=== PATIENT | female | born 1970 | race Two or more races ===

== ENCOUNTER 2022-06-28 04:23 | Inpatient (IN) | payer OTHER ==
[~2022-06-28] VITALS: Ht 165.1 cm; Wt 83.9 kg
--- NOTE | 2022-06-28 04:38 | NUR ---
[id number] FROM [facility] C/O CP SINCE 344. TRAFFIC MAINTENANCE SUPERVISOR TOOK ASP 325MG, & NITRO. PT AAOX4 BREATHING EVENLY AND UNLABORED, BUT PT REPORTS FEELING SOME SOB. SATURATING 100% RA. PT ATTACHED TO MONITOR AND POX. PT STATES FEELING BETTER AFTER ASA AND NITRO THAT WAS GIVEN BY PARAMEDICS. PT HAS DIALYSIS ACCESS ON RT UPPER CHEST. MD AT BEDSIDE. WILL CONTINUE TO MONITOR.
--- NOTE | 2022-06-28 04:41 | NUR ---
EMT AT PT'S BEDSIDE FOR EKG
--- NOTE | 2022-06-28 05:06 | NUR ---
ICT SUPPORT TECHNICIANS AT PT'S BEDSIDE
[2022-06-28 05:40] LABS: BASOPHILS % (AUTO) 0.5 % (0.0-2.0); HEMATOCRIT 36 % (33-45); HEMOGLOBIN 11.9 g/dL (11.5-14.8); LYMPHOCYTES # (AUTO) 2.7 K/uL (0.8-4.8); LYMPHOCYTES % (AUTO) 26.9 % (20.0-44.0); MEAN CORPUSCULAR HGB CONC 34 g/dl (31.0-36.0); MEAN CORPUSCULAR VOLUME 95 fL (82-100); MONOCYTES # (AUTO) 0.8 K/uL (0.1-1.30); MONOCYTES % (AUTO) 7.7 % (2.0-12.0); NEUTROPHILS # (AUTO) 6.3 K/uL (1.8-8.9); NEUTROPHILS % (AUTO) 62.9 % (43.0-81.0); PLATELET COUNT (AUTO) 207 K/uL (150-450); RED BLOOD CELL COUNT(AUTO) 3.75 MIL/uL (4.0-5.2)
[2022-06-28 05:51] LABS: CALCIUM, SERUM 8.8 mg/dL (8.5-10.1); CARBON DIOXIDE 25 mmol/L (21-32); CHLORIDE 101 mmol/L (98-107); CREATININE 3.5 mg/dL (0.6-1.3); GLUCOSE 207 mg/dL (74-106); POTASSIUM 4.1 mmol/L (3.5-5.1); SODIUM SERUM 137 mmol/L (136-145); UREA NITROGEN, BLOOD 59 mg/dL (7-18)
[2022-06-28 06:07] LABS: ALANINE AMINOTRANSFERASE 20 U/L (12-78); ALBUMIN 3.2 g/dL (3.4-5.0); ALKALINE PHOSPHATASE 159 U/L (46-116); ASPARTATE AMINOTRANSFERASE 16 U/L (15-37); BILIRUBIN,DIRECT 0.1 mg/dL (0.0-0.2); BILIRUBIN,TOTAL 0.3 mg/dL (0.2-1.0)
--- NOTE | 2022-06-28 06:47 | NUR ---
covid swab sent to lab
--- NOTE | 2022-06-28 07:26 | NUR ---
REPORT GIVEN TO ABHAY BAINS FOR LYLE
[2022-06-28] MEDS ORDERED: EZET10TA32 PO (08:27)
[2022-06-28] MEDS ORDERED: ALBU2.5V38 NEB (08:27)
[2022-06-28] MEDS ORDERED: INSU100C SQ (08:27)
[2022-06-28] MEDS ORDERED: INSU100V7 SQ (08:27)
[2022-06-28] MEDS ORDERED: ATOR80TA PO (08:27)
[2022-06-28] MEDS ORDERED: ASPI-1420 PO (08:27)
--- NOTE | 2022-06-28 08:51 | NUR ---
Joseph caballero in ED - 06/28/22 at 0852 by JASON COVID SWAB DONE AND SENT TO LAB
[2022-06-28] MEDS ORDERED: MORPHINE SULFATE INJ 2 MG/ML DISP.SYRIN IV PRN (10:00)
[2022-06-28] MEDS ORDERED: NITROGLYCERIN 0.4 MG/TAB BOTTLE SL PRN (10:00)
[2022-06-28] MEDS ORDERED: ONDANSETRON HCL/PF 4 MG/2 ML VIAL IVP PRN (10:00)
[2022-06-28] MEDS: INSULIN LISPRO/ASPART 100 UNIT/ML CARTRIDGE SQ SCH ×2 (12:00→17:14)
--- NOTE | 2022-06-28 12:52 | NUR ---
REPORT GIVEN TO [place] BLANK FOR LYLE
--- NOTE | 2022-06-28 13:10 | NUR ---
TRANSFERRED TO BED 311 IN STABLE CONDITION
[2022-06-28 13:11] VITALS: BP 165/85
--- NOTE | 2022-06-28 13:11 | NUR ---
RN NOTE- PT ARRIVED FROM ED FOR ADMISSION TO TELEMETRY. DX ANGINA/CP. BEGIN ADMISSION PROCESS.
--- NOTE | 2022-06-28 13:12 | NUR ---
PRIMING MIXTURE CARRIER NOTE- 52 Y/O FEMALE LIVES AT HOME W FAMILY. IS ON DAILY DIALYSIS AND WAS RECEIVING HD THIS MORNING WHEN SHE EXPERIENCED CHEST PAIN. SHES BEING ADMITTED TELE FOR ANGINA / CP. PMHX- CHRONIC RENAL FAILURE, HD, CAD W STENTS IN 2020, LEGALLY BLIND, DIABETES, HTN, ASTHMA, HLD. SHE IS ALLERGIC TO NITROFURANTOIN AND IODINE. SHES COVID NEG. PT HAS HAD FLU, PNA VACCINES AND MODERNA COVID VACCS. PRESENTS AOX4, INTERACTIVE, SKIN INTACT. HD PORT TO RCW, HD TO LFA AND PIV 18G TO KIMBERLY. CHEST CLEAR TO AUSCULTATION, BS POSITIVE, NO GUARDING OR RIGIDITY. USES BR. VS - BP- 165/85, HR- 79, RR- 20, T- 98.0. O2 SATS AT 98% RA. ACCUCHECK- BS-211. CXR NEG, PT SAW , ORDERS RECEIVED AND COMPLIED WITH. BED LOCKED, CALL LIGHT IN REACH, ASSIST / MONITOR
[2022-06-28 16:00] VITALS: BP 161/72
[2022-06-28] MEDS ORDERED: METOPROLOL TARTRATE 25 MG TABLET PO SCH (17:00)
--- NOTE | 2022-06-28 19:25 | NUR ---
RN CLOSING NOTE- PT SLEEPING IN BED, EASILY AWAKENED. A/OX4. PT LEGALLY BLIND. NEED ASSIST DURING MEAL TIME TO SET UP. PO INTAKE AT 100%. VS STABLE. MED COMPLIANT. DENIES CHEST PAIN. TELE SINUS RHYTHM @79. FOR CARDIAC CONSULT, ECHO, PT, LABS IN MORNING. SIDE RAILS UP X2, CALL LIGHT WITHIN REACH. WILL ENDORSE TO DIRECTOR OF ENTERTAINMENT NURSE FOR CONTINUITY OF CARE.
--- NOTE | 2022-06-28 19:30 | NUR ---
RN NOTES RECEIVED REPORT FROM MORNING SHIFT. PATIENT IN BED A/O X3 ABLE TO MAKE NEEDS KNOWN. ON ROOM AIR SATING 97% NO SOB NO DISTRESS NOTED. ON TELE MONITOR WITH SINUS @73 NO CHEST PAIN NOTED AT THIS TIME. WITH IV ACCESS AT KIMBERLY #18 SL. RCW PERMA CATH INTACT NO BLEEDING NOTED. ALL SAFETY MEASURES IN PLACE AT ALL TIMES. HOB ELEVATED. CALL LIGHT WITHIN REACH WILL CLOSELY MONITOR THE PATIENT
[2022-06-28 20:00] VITALS: BP 174/63
[2022-06-28] MEDS ORDERED: INSULIN GLARGINE, 100 UNIT/ML CARTRIDGE SQ SCH (22:00)
[2022-06-28] MEDS ORDERED: ATORVASTATIN 40 MG TABLET PO SCH (22:00)
--- NOTE | 2022-06-28 22:40 | NUR ---
RN NOTES BP 174/63 DR HOWELL INFORMED WITH NEW ORDER FOR HYDRALAZINE 10 MG IV Q6H PRN FOR SBP> 170 SYSTOLIC.
[2022-06-28] MEDS ORDERED: hydrALAZINE HCL IV 20 MG VIAL IV PRN (23:00)
[2022-06-29] VITALS: BP 153/75
[2022-06-29 05:00] VITALS: BP 132/60
[2022-06-29] MEDS: INSULIN LISPRO/ASPART 100 UNIT/ML CARTRIDGE SQ SCH ×3 (06:31→17:30)
--- NOTE | 2022-06-29 07:07 | NUR ---
RN NOTES PATIENT REMAINS STABLE NO SIGNIFICANT CHANGES IN HEALTH CONDITION. ALL DUE MEDS GIVEN ORDERED. PATIENT ON ROOM AIR SATING 97%. NO CHESP PAIN NOTED AT THIS TIME. IV ACCESS R UA PATENT FLUSHES WELL. ALL NEEDS ATTENDED. WILL ENDORSED TO MORNING SHIFT FOR LYLE
--- NOTE | 2022-06-29 07:30 | NUR ---
POLICE PATROL OFFICER OPENING NOTE- RECEIVED PATIENT AWAKE IN BED. A/OX4. PT LEGALLY BLIND. VS STABLE. MED COMPLIANT. DENIES CHEST PAIN. ON TELE MONITOR READING SINUS RHYTHM. ABLE TO MAKE NEEDS KNOWN KIMBERLY IV ACCESS G# 18 INTACT . RCW PERMA CATH INTACT. SIDE RAILS UP X2, BED IN THE LOWEST LOCKED POSITION. CALL LIGHT AND TABLE IN EASY REACH. WILL CONTINUE TO MONITOR.
[2022-06-29 08:00] VITALS: BP 109/50
[2022-06-29 08:19] LABS: BASOPHILS # (AUTO) 0.1 K/uL (0.0-0.2); BASOPHILS % (AUTO) 0.7 % (0.0-2.0); EOSINOPHILS % (AUTO) 2.4 % (0.0-6.0); HEMATOCRIT 32 % (33-45); HEMOGLOBIN 10.8 g/dL (11.5-14.8); LYMPHOCYTES # (AUTO) 2.8 K/uL (0.8-4.8); LYMPHOCYTES % (AUTO) 34.8 % (20.0-44.0); MEAN CORPUSCULAR HGB CONC 33 g/dl (31.0-36.0); MEAN CORPUSCULAR VOLUME 96 fL (82-100); MONOCYTES # (AUTO) 0.6 K/uL (0.1-1.30); NEUTROPHILS # (AUTO) 4.5 K/uL (1.8-8.9); NEUTROPHILS % (AUTO) 55.1 % (43.0-81.0); PLATELET COUNT (AUTO) 212 K/uL (150-450); RED BLOOD CELL COUNT(AUTO) 3.35 MIL/uL (4.0-5.2); WHITE BLOOD COUNT (AUTO) 8.2 K/uL (4.3-11.0)
[2022-06-29 08:30] LABS: CALCIUM, SERUM 8.4 mg/dL (8.5-10.1); CREATININE 3.8 mg/dL (0.6-1.3); POTASSIUM 4.4 mmol/L (3.5-5.1)
[2022-06-29] MEDS ORDERED: ASPIRIN EC 81 MG TABLET.DR PO SCH (09:00)
[2022-06-29] MEDS ORDERED: ALBUTEROL FS 2.5 MG/3 ML VIAL.NEB NEB SCH (09:00)
[2022-06-29] MEDS ORDERED: EZETIMIBE 10 MG TABLET PO SCH (09:00)
[2022-06-29] MEDS ORDERED: ASPIRIN 81 MG TAB.CHEW PO SCH (09:00)
[2022-06-29] MEDS: METOPROLOL TARTRATE 25 MG TABLET PO SCH ×2 (09:06→16:43)
[2022-06-29] MEDS ORDERED: CT SWABBABLE VALVE TRANS SET 1 EA INFUS.SET MC ONE (12:43)
[2022-06-29] MEDS ORDERED: IOHEXOL-350 100 ML VIAL IV ONE (12:43)
[2022-06-29] MEDS ORDERED: IV NS 0.9% 250 ML IV ONE (12:44)
[2022-06-29] MEDS ORDERED: METOPROLOL TARTRATE INJ 5 MG/5 ML AMPUL ONE (13:14)
[2022-06-29] MEDS ORDERED: NITROGLYCERIN 0.4 MG/TAB BOTTLE ONE (13:14)
--- NOTE | 2022-06-29 13:25 | NUR ---
RN NOTES PATIENT REFUSED CT ANGIO OF THE HEART WITH 3 D IMAGING AT 1325. SINCE ALLERGIC TO IODINE. DR NINA BEING INFORMED. DR NINA ORDERED BENADRYL AND SOLUMOL , BUT STILL PATIENT REFUSING AND STATING THAT HER PREVIOUS COMO DIAMOND SORTER STATED SHE CAN NOT HAVE MORE CONTRAST. PATIENT REFUSED THE TEST. RESPECT THE PATIENT'S RIGHT. DR NINA AND DR LEYVAYAN AWARE.
--- NOTE | 2022-06-29 14:15 | NUR ---
RN NOTES CALLED [facility] AT [address] GUERRERO THAT DR NINA CLEARED HER FOR DC. DR GUERRERO STATED WILL FOLLOW UP WITH THE DISCHARGE ORDER.
[2022-06-29 16:00] VITALS: BP 158/69
[2022-06-29 16:43] VITALS: BP 158/69
--- NOTE | 2022-06-29 19:30 | NUR ---
RN NOTES DISCHARGE PATIENT IN STABLE CONDITION WITH STABLE VITAL SIGN. NO PAIN NOTED. NO SOB NOTED. NO DISTRESS NOTED. ALL THE DISCHARGE INSTRUCTIONS GIVEN TO THE PATIENT. PATIENT VERBALIZED UNDERSTANDING. REMINDED HER TO FOLLOW UP WITH PCP , [facility] IN 2 WEEKS AND FOLLOW UP HER ROUTINE OUTPATIENT DIALYSIS. PATIENT VERBALIZED UNDERSTANDING. IV SITE REMOVED COVERED WITH DRY DRESSING . NO BLEEDING NOTED. ID BAND REMOVED. TELE BOX REMOVED . ALL NEEDS ATTENDED. ALL THE BELONGINGS ACCOUNTED AND SIGNED FOR. MEGAN KEANE FROM [employer] WHEELED THE PATIENT TO THE LOBBY AT 0715. PATIENT LEFT HOSPITAL IN STABLE CONDITION WITH STABLE VITAL SIGNS. MD DR GUERRERO AND CHARGE NURSE KEIKO AWARE OF THE DISCHARGE.
== END 2022-06-29 19:14 | disposition home or self-care (01) | DRG 198 ==
LOC: ER 04:27 → TELE 12:57
PROVIDERS: ADMIT Internal Medicine; ATTEND Internal Medicine
DX: I25.110 Atherosclerotic heart disease of native coronary artery with unstable angina pectoris (principal); I12.0 Hypertensive chronic kidney disease with stage 5 chronic kidney disease or end stage renal disease; E11.22 Type 2 diabetes mellitus with diabetic chronic kidney disease; N18.6 End stage renal disease; Z99.2 Dependence on renal dialysis; Z20.822 Contact with and (suspected) exposure to COVID-19; Z88.8 Allergy status to other drugs, medicaments and biological substances; Z91.041 Radiographic dye allergy status; Z95.5 Presence of coronary angioplasty implant and graft; E78.5 Hyperlipidemia, unspecified; Z79.4 Long term (current) use of insulin; Z79.82 Long term (current) use of aspirin; Z79.51 Long term (current) use of inhaled steroids; Z79.899 Other long term (current) drug therapy; M89.8X9 Other specified disorders of bone, unspecified site
CPT/HCPCS: 36415; 71045-TC; 80048-TC; 80076-TC; 82962-TC; 83880; 84484-TC; 85025-TC; 85730-TC; 86706; 87081-TC; 87340; 93307-TC; 97112-TC; 97116-TC; 97530-TC; C9803; G0378; J0360; J1815; J2270; J3490; J7050; Q9967

== ENCOUNTER 2022-12-27 07:19 | Inpatient (IN) | payer OTHER ==
[~2022-12-27] VITALS: Ht 162.6 cm; Wt 89.9 kg
[~2022-12-27 07:19] MED LIST: ALBU2.5V38 NEB; ASPI-1420 PO; ATOR80TA PO; EZET10TA32 PO; INSU100C SQ; INSU100V7 SQ
--- NOTE | 2022-12-27 07:20 | NUR ---
RECEIVED PT 52 YRS FEMALE CAME BY [facility] C/O CHEST PAIN 05/21 AFTER COMPLETED HEMODIALYSIS COMPLETED TODAY AWAKE AND ALERT FALLOW NO DISTRESS
--- NOTE | 2022-12-27 07:25 | NUR ---
SEEN BY DR. PAVON
--- NOTE | 2022-12-27 07:35 | NUR ---
INSERTED ANGO CATHETER G 20 ON RT AC BLOOD DROW AND SENT TO LAB
[2022-12-27 08:04] LABS: BASOPHILS % (AUTO) 0.4 % (0.0-2.0); EOSINOPHILS % (AUTO) 2.4 % (0.0-6.0); HEMATOCRIT 33 % (33-45); HEMOGLOBIN 11.5 g/dL (11.5-14.8); LYMPHOCYTES # (AUTO) 2.3 K/uL (0.8-4.8); LYMPHOCYTES % (AUTO) 29.4 % (20.0-44.0); MEAN CORPUSCULAR HGB CONC 34 g/dl (31.0-36.0); MEAN CORPUSCULAR VOLUME 95 fL (82-100); MONOCYTES # (AUTO) 0.6 K/uL (0.1-1.30); NEUTROPHILS # (AUTO) 4.6 K/uL (1.8-8.9); NEUTROPHILS % (AUTO) 59.8 % (43.0-81.0); PLATELET COUNT (AUTO) 151 K/uL (150-450); RED BLOOD CELL COUNT(AUTO) 3.52 MIL/uL (4.0-5.2); WHITE BLOOD COUNT (AUTO) 7.8 K/uL (4.3-11.0)
--- NOTE | 2022-12-27 08:20 | NUR ---
RESTING AT THIS TIME WITH NO SOB
[2022-12-27] MEDS ORDERED: MORPHINE SULFATE INJ 2 MG/ML DISP.SYRIN IV ONE (08:30)
[2022-12-27 08:32] LABS: CARBON DIOXIDE 27 mmol/L (21-32); CHLORIDE 99 mmol/L (98-107); CREATININE 2.4 mg/dL (0.6-1.3); GLUCOSE 238 mg/dL (74-106); POTASSIUM 3.7 mmol/L (3.5-5.1); SODIUM SERUM 132 mmol/L (136-145); UREA NITROGEN, BLOOD 30 mg/dL (7-18)
--- NOTE | 2022-12-27 08:42 | NUR ---
COVID SWAB DONE AND SENT TO THE LAB
--- NOTE | 2022-12-27 08:42 | NUR ---
COVID SWAB SENT TO LAB
[2022-12-27 08:44] LABS: ALANINE AMINOTRANSFERASE 25 U/L (12-78); ALBUMIN 3.4 g/dL (3.4-5.0); ALKALINE PHOSPHATASE 188 U/L (46-116); ASPARTATE AMINOTRANSFERASE 16 U/L (15-37); BILIRUBIN,DIRECT 0.1 mg/dL (0.0-0.2); BILIRUBIN,TOTAL 0.4 mg/dL (0.2-1.0); TOTAL PROTEIN, SERUM 6.9 g/dL (6.4-8.2)
[2022-12-27] MEDS ORDERED: MORPHINE SULFATE INJ 2 MG/ML DISP.SYRIN ONE (08:44)
[2022-12-27] MEDS: ASPIRIN 325 MG TABLET PO ONE ×2 (08:45→08:58)
[2022-12-27] MEDS ORDERED: ASPIRIN EC 325 MG TABLET.DR PO ONE (08:45)
--- NOTE | 2022-12-27 08:59 | NUR ---
Joseph caballero in ED - 12/27/22 at 0900 by GORAN INSERTED ARNULFO G 20 ON RT AC BLOOD DROW AND SENT TO LAB
--- NOTE | 2022-12-27 10:19 | NUR ---
BLOOD DROW FOR TROBONINE LEVEL
--- NOTE | 2022-12-27 11:28 | NUR ---
UA SENT TO LAB
--- NOTE | 2022-12-27 12:45 | NUR ---
PAUL AGUSTIN [phone] Addendum: 12/27/22 at 1246 by JOHANNO OPTION 3
--- NOTE | 2022-12-27 13:15 | NUR ---
CALLED NURSING SUP REGARDING PT BED
[2022-12-27] MEDS ORDERED: MORPHINE SULFATE INJ 2 MG/ML DISP.SYRIN IV PRN (14:00)
[2022-12-27] MEDS ORDERED: HYDROCODONE/APAP 5/325MG TABLET PO PRN (14:00)
[2022-12-27] MEDS ORDERED: Z GUARD REMEDY 4 OZ OINT TP PRN (14:00)
[2022-12-27] MEDS ORDERED: ONDANSETRON HCL/PF 4 MG/2 ML VIAL IVP PRN (14:00)
[2022-12-27] MEDS ORDERED: NITROGLYCERIN 0.4 MG/TAB BOTTLE SL PRN (14:00)
[2022-12-27] MEDS ORDERED: ACETAMINOPHEN 325 MG TABLET PO PRN (14:00)
[2022-12-27] MEDS ORDERED: LATA2.5D2 LEFTEYE (14:14)
[2022-12-27] MEDS ORDERED: SEVE800T28 PO (14:14)
[2022-12-27] MEDS ORDERED: DEXTROSE 50%-WATER 50 ML DISP.SYRIN IV PRN (14:30)
--- NOTE | 2022-12-27 14:54 | NUR ---
RESTING AND ASLEEPY NO CHEST PAIN
--- NOTE | 2022-12-27 15:06 | NUR ---
ROOM 323-2
[2022-12-27] MEDS ORDERED: CLOP75TA15 PO (15:18)
[2022-12-27] MEDS ORDERED: PANT40TA49 PO (15:18)
[2022-12-27] MEDS ORDERED: EPOE1VIA7 SQ (15:18)
[2022-12-27] MEDS ORDERED: AMLO-213 PO (15:18)
[2022-12-27] MEDS ORDERED: CHOL100043 PO (15:18)
[2022-12-27] MEDS ORDERED: ALBU8.5H8 IH (15:18)
[2022-12-27] MEDS ORDERED: CARV3.122 PO (15:18)
[2022-12-27] MEDS ORDERED: CALC0.5C11 PO (15:18)
[2022-12-27] MEDS ORDERED: DOCU-141 PO (15:18)
--- NOTE | 2022-12-27 15:20 | NUR ---
REPORT GIVEN TO NURSE HEART FOR LYLE
--- NOTE | 2022-12-27 15:27 | NUR ---
TO ROOM 323-2 VIA GARNY STABLE VS DINMARK CHEST PAIN
--- NOTE | 2022-12-27 16:35 | NUR ---
Joseph caballero in [facility] - 12/27/22 at 1647 by GORAN TO ROOM 323-1
--- NOTE | 2022-12-27 16:35 | NUR ---
TO ROOM 323-2 VIA SWETHA FREEMAN VS
--- NOTE | 2022-12-27 16:35 | NUR ---
WATING FOR ROLE OVER
[2022-12-27] MEDS: BLOOD SUGAR DIAGNOSTIC 1 EACH STRIP IN SCH ×2 (18:09→22:08)
[2022-12-27] MEDS: INSULIN REGULAR, HUMAN 100 UNIT/ML 3 ML VIAL SQ PRN ×2 (18:38→22:11)
--- NOTE | 2022-12-27 18:45 | NUR ---
MS NURSE AUDITOR NOTES: Pt admitted to unit via rney at 1638 accompanied by 2 ER staff with the diagnosis of chest pain. A/O x 4, able to make needs known, ambulatory with cane. Verbalized still has left lower sided chest pain with scale of 4/10. IV access in the RAC #20g, sl. Oriented to room and staff. Admission care done. No skin issues. Hooked to tele monitor with current SR. On room air, tolerating well. Safety measures implemented: bed locked in lowest position, hob elevated, side rails up x 3, call light and tray table within easy reach. Will continue to monitor.
--- NOTE | 2022-12-27 19:00 | NUR ---
BRANCH ACCOUNT MANAGER CLOSING NOTES: Pt resting in bed. A/O x 4, able to make needs known. IV access in the RAC #20g, sl. On tele monitor with current SR. On room air, tolerating well. Needs attended. Safety measures implemented: bed locked in lowest position, hob elevated, side rails up x 3, call light and tray table within easy reach. Will endorse herb to film processing shift supervisor.
--- NOTE | 2022-12-27 19:30 | NUR ---
BEARING MACHINE OPERATOR OPENING NOTE RECEIVED PT AWAKE IN BED. A/O X4 AND ABLE TO MAKE NEEDS KNOWN. PT STABLE ON ROOM AIR. NO SOB OR S/S OF RESPIRATORY DISTRESS. BREATHING EVEN AND UNLABORED. ON EXTERNAL DIVISION ENGINEER READING SR 70 BPM. IV ACCESS RAC 20G SL, INTACT AND PATENT. SAFETY PRECAUTIONS IN PLACE. BED IN LOWEST LOCKED POSITION, HOB ELEVATED, SIDE RAILS UP X2, AND CALL LIGHT AND TABLE WITHIN REACH. ALL NEEDS MET AT THIS TIME.
[2022-12-27 20:00] VITALS: BP 172/80
[2022-12-27] MEDS ORDERED: hydrALAZINE HCL IV 20 MG VIAL IV PRN (20:30)
--- NOTE | 2022-12-27 20:35 | NUR ---
RN NOTE PT NOTED WITH BP 172/80 AND HR 74[address] INFORMED DR COOPER WITH NEW ORDER FOR HYDRALAZINE 10 MG Q4H PRN FOR SBP >160. NEW ORDER NOTED AND CARRIED OUT. SPOKE TO PT AND SHE REFUSED MED. SHE STATED "I DO NOT WANT TO TAKE MEDICATION FOR MY BLOOD PRESSURE IN CASE I AM ABLE TO GET DIALYSIS TOMORROW". INFORMED PT THAT THE SENIOR INFORMATION DEVELOPER HAS NOT SEEN HER YET AND THERE IS NO HD ORDER. PT STATED SHE UNDERSTOOD AND STILL REFUSED THE MEDICATION. CHARGE NURSE DENIS VILLARREAL.
[2022-12-27] MEDS: ATORVASTATIN 40 MG TABLET PO SCH (22:16)
[2022-12-27] MEDS: INSULIN GLARGINE, 100 UNIT/ML CARTRIDGE SQ SCH (22:16)
[2022-12-28 04:00] VITALS: BP 106/74
[2022-12-28] MEDS: BLOOD SUGAR DIAGNOSTIC 1 EACH STRIP IN SCH ×4 (06:30→22:12)
[2022-12-28] MEDS: INSULIN REGULAR, HUMAN 100 UNIT/ML 3 ML VIAL SQ PRN ×3 (06:31→22:16)
--- NOTE | 2022-12-28 06:32 | NUR ---
REGIONAL DRIVER CLOSING NOTE PT AWAKE IN BED. A/O X4 AND ABLE TO MAKE NEEDS KNOWN. PT STABLE ON ROOM AIR. NO SOB OR S/S OF RESPIRATORY DISTRESS. BREATHING EVEN AND UNLABORED. ON EXTERNAL SOLAR SALES ASSOCIATE READING SR 69 BPM. IV ACCESS RAC 20G SL, INTACT AND PATENT. ALL DUE MEDS GIVEN ORDERED. NO COMPLAINTS OF PAIN OR DISCOMFORT ENTIRE SHIFT. SAFETY PRECAUTIONS IN PLACE AT ALL TIMES. BED IN LOWEST LOCKED POSITION, HOB ELEVATED, SIDE RAILS UP X2, AND CALL LIGHT AND TABLE WITHIN REACH. ALL NEEDS MET AT THIS TIME AND WILL ENDORSE TO ONCOMING NURSE FOR LYLE.
[2022-12-28 06:48] LABS: BASOPHILS % (AUTO) 0.4 % (0.0-2.0); EOSINOPHILS % (AUTO) 2.3 % (0.0-6.0); HEMATOCRIT 33 % (33-45); HEMOGLOBIN 10.8 g/dL (11.5-14.8); LYMPHOCYTES # (AUTO) 2.6 K/uL (0.8-4.8); LYMPHOCYTES % (AUTO) 34.6 % (20.0-44.0); MEAN CORPUSCULAR HGB CONC 33 g/dl (31.0-36.0); MEAN CORPUSCULAR VOLUME 97 fL (82-100); MONOCYTES # (AUTO) 0.7 K/uL (0.1-1.30); MONOCYTES % (AUTO) 8.8 % (2.0-12.0); NEUTROPHILS % (AUTO) 53.9 % (43.0-81.0); PLATELET COUNT (AUTO) 163 K/uL (150-450); RED BLOOD CELL COUNT(AUTO) 3.44 MIL/uL (4.0-5.2); WHITE BLOOD COUNT (AUTO) 7.4 K/uL (4.3-11.0)
[2022-12-28 07:14] LABS: CALCIUM, SERUM 8.7 mg/dL (8.5-10.1); CREATININE 3.4 mg/dL (0.6-1.3); MAGNESIUM 2.1 mg/dL (1.8-2.4); PHOSPHORUS 4.3 mg/dL (2.5-4.9); POTASSIUM 4.1 mmol/L (3.5-5.1)
--- NOTE | 2022-12-28 07:15 | NUR ---
BARREL RAISER OPENING NOTE RECEIVED PT AWAKE IN BED. A/O X4 AND ABLE TO MAKE NEEDS KNOWN. PT STABLE ON ROOM AIR. NO SOB OR S/S OF RESPIRATORY DISTRESS. NO C/O OF PAIN AND DISCOMFORT . ON EXTERNAL ROLLER INSPECTOR READING SR 74 BPM. IV ACCESS RAC 20G SL, INTACT AND PATENT. SAFETY PRECAUTIONS IN PLACE. BED IN LOWEST LOCKED POSITION, HOB ELEVATED, SIDE RAILS UP X2, AND CALL LIGHT AND TABLE WITHIN REACH. WILL CONTINUE TO MONITOR .
[2022-12-28 08:00] VITALS: BP 126/60
[2022-12-28] MEDS: EZETIMIBE 10 MG TABLET PO SCH (08:22)
[2022-12-28] MEDS: ASPIRIN EC 81 MG TABLET.DR PO SCH (08:22)
[2022-12-28] MEDS: PANTOPRAZOLE 40 MG TABLET.DR PO SCH (08:22)
[2022-12-28] MEDS ORDERED: ALBUTEROL FS 2.5 MG/3 ML VIAL.NEB NEB SCH (09:00)
[2022-12-28] MEDS ORDERED: ASPIRIN EC 81 MG TABLET.DR PO SCH (09:00)
[2022-12-28] MEDS ORDERED: IV NS 0.9% 1,000 ML IV SCH (12:30)
[2022-12-28] MEDS: NIFEDIPINE XL 60 MG TAB.ER.24 PO SCH ×3 (13:30→16:55)
[2022-12-28] MEDS: CARVEDILOL 6.25 MG TABLET PO SCH ×2 (14:20→16:54)
[2022-12-28] MEDS: CLOPIDOGREL BISULFATE 75 MG TABLET PO SCH (14:20)
[2022-12-28 16:00] VITALS: BP 130/67
[2022-12-28 18:37] LABS: CREATININE, URINE 45.3 MG/DL (30.0-125.0)
--- NOTE | 2022-12-28 18:49 | NUR ---
INTERIOR DECORATOR CLOSING NOTES PATIENT IN BED AWAKE , VERBALLY RESPONSIVE ON SAT MATH TUTOR WITH READING OF SR HR OF 76, ON BEDREST , ROOM AIR AND NO SOB OR DISTRESS NOTED , NO C/O OF PAIN AND DISCOMFORT , IV ACCESS ON THE RIGHT AC G 18 SL , REFUSED TO TAKE THE NEFIDIPINE , AND 1700 MEDS DUE , SAFETY MEASURES PROVIDED , CALL LIGHT WITHIN REACH , ENDORSED TO NEXT SHIFT .
--- NOTE | 2022-12-28 19:30 | NUR ---
SOLAR PROJECT ENGINEER OPENING NOTE RECEIVED PT AWAKE IN BED. A/O X4 AND ABLE TO MAKE NEEDS KNOWN. PT STABLE ON ROOM AIR. NO SOB OR S/S OF RESPIRATORY DISTRESS. BREATHING EVEN AND UNLABORED. ON EXTERNAL FERRY OPERATOR READING SR 73 BPM. IV ACCESS RAC 20G SL, INTACT AND PATENT. WITH RCW PERMACATH, DRESSING C/DI. SAFETY PRECAUTIONS IN PLACE. BED IN LOWEST LOCKED POSITION, HOB ELEVATED, SIDE RAILS UP X2, AND CALL LIGHT AND TABLE WITHIN REACH. ALL NEEDS MET AT THIS TIME.
[2022-12-28 20:00] VITALS: BP 148/74
[2022-12-28] MEDS: ATORVASTATIN 40 MG TABLET PO SCH (22:12)
--- NOTE | 2022-12-28 22:12 | NUR ---
RN NOTE PT COMPLAINED OF MILD HEADACHE AND REQUESTED TYLENOL. ADMINISTERED TYLENOL 650 MG FOR MILD PAIN ORDERED. MADE COMFORTABLE IN BED. ALL NEEDS MET AT THIS TIME.
[2022-12-28] MEDS: INSULIN GLARGINE, 100 UNIT/ML CARTRIDGE SQ SCH (22:14)
[2022-12-29] VITALS: BP 119/59
[2022-12-29 04:00] VITALS: BP 131/64
[2022-12-29] MEDS: INSULIN REGULAR, HUMAN 100 UNIT/ML 3 ML VIAL SQ PRN ×2 (06:31→13:46)
[2022-12-29] MEDS: BLOOD SUGAR DIAGNOSTIC 1 EACH STRIP IN SCH ×3 (06:31→17:05)
--- NOTE | 2022-12-29 06:51 | NUR ---
MEDICAL AND HEALTH SERVICES MANAGER CLOSING NOTE PT AWAKE IN BED. A/O X4 AND ABLE TO MAKE NEEDS KNOWN. PT STABLE ON ROOM AIR. NO SOB OR S/S OF RESPIRATORY DISTRESS. BREATHING EVEN AND UNLABORED. ON EXTERNAL PROJECT MANAGEMENT CONSULTANT READING SR 69 BPM. IV ACCESS RAC 20G SL, INTACT AND PATENT. ALL DUE MEDS GIVEN ORDERED. NO COMPLAINTS OF PAIN OR DISCOMFORT ENTIRE SHIFT. SAFETY PRECAUTIONS IN PLACE AT ALL TIMES. BED IN LOWEST LOCKED POSITION, HOB ELEVATED, SIDE RAILS UP X2, AND CALL LIGHT AND TABLE WITHIN REACH. ALL NEEDS MET AT THIS TIME AND WILL ENDORSE TO ONCOMING NURSE FOR LYLE.
--- NOTE | 2022-12-29 07:25 | NUR ---
PURCHASING ADMINISTRATIVE ASSISTANT OPENING NOTES RECEIVED PT AWAKE IN BED. A/O X4 AND ABLE TO MAKE NEEDS KNOWN. PT STABLE ON ROOM AIR. NO SOB OR S/S OF RESPIRATORY DISTRESS. BREATHING EVEN AND UNLABORED. ON EXTERNAL AUTOMOTIVE SERVICE MANAGEMENT TEACHER READING SR 73 BPM. IV ACCESS RAC 20G SL, INTACT AND PATENT. WITH RCW PERMACATH, DRESSING C/DI. SAFETY PRECAUTIONS IN PLACE. BED IN LOWEST LOCKED POSITION, HOB ELEVATED, SIDE RAILS UP X2, AND CALL LIGHT AND TABLE WITHIN REACH. ALL NEEDS MET AT THIS TIME.
[2022-12-29 07:56] LABS: THYROID STIMULATING HORMONE 3.176 uIU/mL (0.358-3.74)
[2022-12-29 08:00] VITALS: BP 141/64
[2022-12-29] MEDS: ASPIRIN EC 81 MG TABLET.DR PO SCH (09:12)
[2022-12-29] MEDS: NIFEDIPINE XL 60 MG TAB.ER.24 PO SCH ×2 (09:13→17:00)
[2022-12-29] MEDS: CLOPIDOGREL BISULFATE 75 MG TABLET PO SCH (09:13)
[2022-12-29] MEDS: CARVEDILOL 6.25 MG TABLET PO SCH ×2 (09:14→17:00)
[2022-12-29] MEDS: PANTOPRAZOLE 40 MG TABLET.DR PO SCH (09:14)
[2022-12-29] MEDS: EZETIMIBE 10 MG TABLET PO SCH (09:46)
[2022-12-29 12:00] VITALS: BP 177/80
[2022-12-29 16:00] VITALS: BP 146/70
[2022-12-29 17:00] VITALS: BP 146/70
--- NOTE | 2022-12-29 18:49 | NUR ---
RN CLOSING AND DISCHARGE NOTES PT AWAKE IN BED. A/O X4 AND ABLE TO MAKE NEEDS KNOWN. PT STABLE ON ROOM AIR. NO SOB OR S/S OF RESPIRATORY DISTRESS. BREATHING EVEN AND UNLABORED. ON EXTERNAL MEDICAL CENTER REPRESENTATIVE READING SR 73 BPM. IV ACCESS RAC 20G SL, INTACT AND PATENT. WITH RCW PERMACATH, DRESSING C/DI. DIALYSIS DONE X1 WITH 1LITER OUTPUT , ALL DUE MEDS GVIEN ORDERED , SEEN BY DR RAMIREZ AND WITH ORDER TO DISCHARGE TO HOME , ALL PAPERS PREPARED AND DISCHARGE INSTRUCTIONS PROVIDED TO THE PATIENT , REGARDING MEDICATIONS , HEMODIALYSIS AND FOLLOW WITH PCP, ALL BELONGINGS WERE TAKEN AND FORM WAS SIGNED , IV ACCESS REMOVED AND IV BADGE REMOVED , ASSISTED TO THE LOBBY AND WAS THERE TO MID WIFE AND THEY SAID THEY GONNA TAKE UBER GOING HOME , LEFT IN A STABLE CONDITION
== END 2022-12-29 18:35 | disposition home or self-care (01) | DRG 198 ==
LOC: ER 07:20 → TELE 15:46
PROC: 5A1D70Z Performance of Urinary Filtration, Intermittent, Less than 6 Hours Per Day (ICD-10-PCS; principal; 2022-12-29)
DX: I25.110 Atherosclerotic heart disease of native coronary artery with unstable angina pectoris (principal); I12.0 Hypertensive chronic kidney disease with stage 5 chronic kidney disease or end stage renal disease; E11.22 Type 2 diabetes mellitus with diabetic chronic kidney disease; N18.6 End stage renal disease; Z99.2 Dependence on renal dialysis; E66.9 Obesity, unspecified; H54.62 Unqualified visual loss, left eye, normal vision right eye; E78.5 Hyperlipidemia, unspecified; Z20.822 Contact with and (suspected) exposure to COVID-19; Z79.4 Long term (current) use of insulin; M89.8X9 Other specified disorders of bone, unspecified site; Z79.82 Long term (current) use of aspirin; Z95.5 Presence of coronary angioplasty implant and graft; Z68.34 Body mass index [BMI] 34.0-34.9, adult; Z79.02 Long term (current) use of antithrombotics/antiplatelets; Z79.51 Long term (current) use of inhaled steroids
CPT/HCPCS: 36415; 71045-TC; 80048-TC; 80061-TC; 80076-TC; 82570-TC; 82962-TC; 83735-TC; 83880; 84100-TC; 84300-TC; 84443-TC; 84484-TC; 85025-TC; 87081-TC; 93307-TC; 97112-TC; 97116-TC; 97530-TC; C9803; G0378; J1815; J2270